=== PATIENT | female | born 1960 | race Two or more races ===

== ENCOUNTER 2017-11-12 08:30 | Inpatient (IN) | payer OTHER ==
[~2017-11-12] VITALS: Ht 162.6 cm; Wt 68.9 kg
[2017-11-12] MEDS ORDERED: TENORMIN50 M1 PO (10:38)
[2017-11-12] MEDS ORDERED: ADVANCED AM/PM1 EACH PO (10:39)
[2017-11-12] MEDS ORDERED: CLONAZEPAM1 M1 PO (10:39)
[2017-12-16] MEDS ORDERED: LEVAQUIN750 MG PO (07:49)
[2017-12-16] MEDS ORDERED: INTESTINEX680 M1 PO (07:49)
[2017-12-16] MEDS ORDERED: ULTRACET PO (07:49)
== END 2017-12-16 12:40 | disposition home or self-care (01) | DRG 330 ==
LOC: SURG 11-19 07:00 → O/R 12-10 05:47 → SURG 12-10 05:47
PROVIDERS: Surgery
PROC: 0DTP4ZZ Resection of Rectum, Percutaneous Endoscopic Approach (ICD-10-PCS; 2017-12-10)
PROC: 0DJD8ZZ Inspection of Lower Intestinal Tract, Via Natural or Artificial Opening Endoscopic (ICD-10-PCS; 2017-12-10)
PROC: 4A12X4Z Monitoring of Cardiac Electrical Activity, External Approach (ICD-10-PCS; 2017-12-10)
PROC: 0DTN4ZZ Resection of Sigmoid Colon, Percutaneous Endoscopic Approach (ICD-10-PCS; principal; 2017-12-10 11:00)
DX: K57.32 Diverticulitis of large intestine without perforation or abscess without bleeding (principal); J98.11 Atelectasis; D62 Acute posthemorrhagic anemia; R50.82 Postprocedural fever; I11.9 Hypertensive heart disease without heart failure; G47.33 Obstructive sleep apnea (adult) (pediatric)